=== PATIENT | male | born 1990 | race Caucasian/White ===

== ENCOUNTER 2022-07-31 02:24 | Inpatient (IN) | payer OTHER, SELFPAY ==
--- NOTE | ~2022-07-31 | XR_ITS ---
EXAMINATION: XR CHEST CLINICAL INFORMATION: Cough COMPARISON: None TECHNIQUE: Frontal view of the chest was obtained. FINDINGS: No significant abnormality is noted involving the heart, lungs, mediastinum, bony thorax or soft tissues. XR/XR chest 1V IMPRESSION: Unremarkable examination.
[2022-07-31 02:26] VITALS: BP 148/97; PULSE 90; RESP 20; TEMP 36; O2SAT 95; BMI 31.4
[2022-07-31 03:11] LABS: Basophils Absolute Auto 0.1 X10*3/uL (0.0-0.2); Basophils Percent Auto 0.3 % (0-2); Hematocrit 41.9 % (42.0-52.0); Hemoglobin 13.8 g/dl (14.0-18.0); Imm Gran Abs Auto 0.07 X10*3/uL (0.00-0.03); Imm Gran Pct Auto 0.4 % (0.0-0.4); Lymphocytes Absolute Auto 1.2 X10*3/uL (1.2-4.9); Lymphocytes Percent Auto 6.2 % (20-40); MANUAL DIFF FLAG NO; Mean Corpuscular HGB Conc 32.9 g/dl (31.0-36.0); Mean Corpuscular Hemoglobin 26.9 pg (27.0-33.0); Mean Corpuscular Volume 81.7 fL (80.0-98.0); Mean Platelet Volume 9.3 fL (9.4-12.4); Monocytes Absolute Auto 0.7 X10*3/uL (0.1-1.2); Monocytes Percent Auto 3.3 % (2-11); Neutrophils Absolute Auto 17.6 x10*3/uL (2.0-8.3); Neutrophils Percent Auto 89.8 % (45-73); Platelet Count 379 X10*3/uL (160-400); Red Blood Count 5.13 X10*6/uL (4.60-5.80); Red Cell Distribution Width 14.1 % (11.0-16.0); White Blood Count 19.6 X10*3/uL (4.8-10.8)
[2022-07-31 03:28] LABS: COVID-19 Test Negative (Negative); IDNOW Serial# 6674DD1D
[2022-07-31 03:36] LABS: Valproate < 12.5 mcg/mL (50.0-100.0)
[2022-07-31 03:37] LABS: Amphetamine Screen Urine Not Detected (Not Detect); Barbiturates, Urine Not Detected (Not Detect); Benzodiazepines Screen Urine Not Detected (Not Detect); Cannabinoid Screen Urine POSITIVE (Not Detect); Cocaine Screen Urine POSITIVE (Not Detect); Fentanyl, urine Not Detected (Not Detect); Opiate Screen Urine Not Detected (Not Detect); Phencyclidine Screen Urine Not Detected (Not Detect)
[2022-07-31 03:40] VITALS: BP 137/88; PULSE 80; RESP 18; TEMP 36.6; O2SAT 95
[2022-07-31 03:40] LABS: Alanine Aminotransferase 38 U/L (0-40); Albumin Level 4.7 g/dL (3.5-5.0); Alkaline Phosphatase 84 U/L (39-117); Anion Gap 18 (12-20); Aspartate Amino Transferase 18 U/L (5-37); Bilirubin Total 0.4 mg/dL (0.0-1.0); Blood Urea Nitrogen 21 mg/dL (9-16); Calcium 9.5 mg/dL (8.4-10.2); Carbon Dioxide 22 mmol/L (22-29); Chloride 105 mmol/L (96-108); Creatinine Clr Calc Pharmacy 112.7; Estimated Glomerular Filt Rate > 60; Ethanol < 10 mg/dL; Glucose Random 96 mg/dL (60-115); Potassium 4.4 mmol/L (3.3-5.1); Sodium 141 mmol/L (135-145); Total Protein 7.5 g/dL (6.5-8.0)
--- NOTE | 2022-07-31 03:43 | ED.PSYCH ---
HPI - Psych General Chief Complaint: Psychiatric Symptoms Stated Complaint: crisis Time Seen by Provider: 07/31/22 02:47 Source: patient Mode of arrival: ambulatory Limitations: no limitations History of Present Illness HPI Narrative: Patient homeless, history of cocaine abuse and depression used to be on Depakote and Seroquel which not taking for more than 4 weeks comes here for increased depression feels suicidal with no plan relapse on cocaine few days ago patient also been coughing for a while Related Data Home Medications Medication Instructions Recorded Confirmed divalproex 500 mg tablet,delayed 3 tab PO BEDTIME 07/31/22 07/31/22 release fluoxetine 40 mg capsule 1 cap PO QAM 07/31/22 07/31/22 quetiapine 50 mg tablet 1 tab PO TID PRN Anxiety 07/31/22 07/31/22 Allergies Allergy/AdvReac Type Severity Reaction Status Date / Time bupropion [From Wellbutrin] Allergy Unknown Verified 07/31/22 02:30 Review of Systems Review of Systems: Yes all other systems are reviewed and are negative COUNT INCLUDES THE [facility] Social History Social History Advance Directives: No Physical Exam Vital Signs: Vital Signs: Last Vital Signs Temp 97.9 F 07/31/22 03:40 Pulse 80 07/31/22 03:40 Resp 18 07/31/22 03:40 BP 137/88 07/31/22 03:40 Pulse Ox 95 07/31/22 03:40 O2 Del Method 07/31/22 03:40 BMI result Body Mass Index 31.4 Appearance: Alert. Oriented X3. No acute distress. Unkept Eyes: PERRLA, No Nystagmus ENT: Pharynx normal. Oral Mucosa moist Neck: Normal inspection. Neck supple. CVS: Normal heart rate and rhythm. Pulses normal. Respiratory: No respiratory distress. Equal air entry bilateral, no wheezing/rales/rhonchi Abdomen: Soft and nontender. Bowel sounds are present, no mass palpable, no CVA tenderness Skin: Skin warm and dry. Normal skin color. Normal skin turgor. Extremities: No lower extremity edema. No calf tenderness psych: Depression+ no SI/HI or hallucination/delusion Neuro: Oriented X 3. No motor deficit. No sensory deficit.No cerebellar signs , cranial nerves II-XII intact Medications Administered Discontinued Medications Generic Name Dose Route Start Last Admin Trade Name Liam PRN Reason Stop Dose Admin Cefuroxime Axetil 500 mg 07/31/22 04:15 07/31/22 04:29 Cefuroxime Axetil 500 Mg Tablet PO 07/31/22 04:16 500 mg ONCE ONE Administration Doxycycline Monohydrate 100 mg 07/31/22 04:15 07/31/22 04:29 Doxycycline Monohydrate 100 Mg Capsule PO 07/31/22 04:16 100 mg ONCE ONE Administration Medical Decision Making Medical Decision Making MDM Narrative: Patient with depression with SI with substance abuse cocaine will get care team involve for evaluation Lab Data MDM Lab Attestation statement: I reviewed the patient's lab results. 07/31/22 02:51 07/31/22 02:51 Labs: Lab Results 07/31/22 07/31/22 07/31/22 Range/Units 02:51 02:51 02:51 WBC 19.6 H (4.8-10.8) X10*3/uL RBC 5.13 (4.60-5.80) X10*6/uL Hgb 13.8 L (14.0-18.0) g/dl Hct 41.9 L (42.0-52.0) % MCV 81.7 (80.0-98.0) fL MCH 26.9 L (27.0-33.0) pg MCHC 32.9 (31.0-36.0) g/dl RDW 14.1 (11.0-16.0) % Plt Count 379 (160-400) X10*3/uL MPV 9.3 L (9.4-12.4) fL Immature Gran % (Auto) 0.4 (0.0-0.4) % Neut % (Auto) 89.8 H (45-73) % Lymph % (Auto) 6.2 L (20-40) % Towns % (Auto) 3.3 (2-11) % Eos % (Auto) 0.0 (0-4) % Baso % (Auto) 0.3 (0-2) % Lymph # (Auto) 1.2 (1.2-4.9) X10*3/uL Towns # (Auto) 0.7 (0.1-1.2) X10*3/uL Eos # (Auto) 0.0 (0.0-0.4) X10*3/uL Baso # (Auto) 0.1 (0.0-0.2) X10*3/uL Abs Immat Gran (auto) 0.07 H (0.00-0.03) X10*3/uL Absolute Neuts (auto) 17.6 H (2.0-8.3) x10*3/uL Absolute Nucleated RBC 0.000 (0.0-0.012) X10*3/uL Nucleated RBC % (auto) 0.0 (0.0-0.2) /100WBC Sodium 141 (135-145) mmol/L Potassium 4.4 (3.3-5.1) mmol/L Chloride 105 (96-108) mmol/L Carbon Dioxide 22 (22-29) mmol/L Anion Gap 18 (12-20) BUN 21 H (9-16) mg/dL Creatinine 0.98 (0.5-1.4) mg/dL Estim Creat Clear Calc 112.7 Estimated GFR > 60 Random Glucose 96 (60-115) mg/dL Calcium 9.5 (8.4-10.2) mg/dL Total Bilirubin 0.4 (0.0-1.0) mg/dL AST 18 (5-37) U/L ALT 38 (0-40) U/L Alkaline Phosphatase 84 (39-117) U/L Total Protein 7.5 (6.5-8.0) g/dL Albumin 4.7 (3.5-5.0) g/dL Urine Opiates Screen (Not Detect) Urine Fentanyl Screen (Not Detect) Ur Barbiturates Screen (Not Detect) Valproic Acid (50.0-100.0) mcg/mL Ur Phencyclidine Scrn (Not Detect) Ur Amphetamines Screen (Not Detect) U Benzodiazepines Scrn (Not Detect) Urine Cocaine Screen (Not Detect) U Marijuana (THC) Screen (Not Detect) Ethyl Alcohol < 10 mg/dL COVID-19 (FRIEDA) Negative (Negative) COVID-19 Clin Com See Note 07/31/22 07/31/22 Range/Units 02:51 02:54 WBC (4.8-10.8) X10*3/uL RBC (4.60-5.80) X10*6/uL Hgb (14.0-18.0) g/dl Hct (42.0-52.0) % MCV (80.0-98.0) fL MCH (27.0-33.0) pg MCHC (31.0-36.0) g/dl RDW (11.0-16.0) % Plt Count (160-400) X10*3/uL MPV (9.4-12.4) fL Immature Gran % (Auto) (0.0-0.4) % Neut % (Auto) (45-73) % Lymph % (Auto) (20-40) % Towns % (Auto) (2-11) % Eos % (Auto) (0-4) % Baso % (Auto) (0-2) % Lymph # (Auto) (1.2-4.9) X10*3/uL Towns # (Auto) (0.1-1.2) X10*3/uL Eos # (Auto) (0.0-0.4) X10*3/uL Baso # (Auto) (0.0-0.2) X10*3/uL Abs Immat Gran (auto) (0.00-0.03) X10*3/uL Absolute Neuts (auto) (2.0-8.3) x10*3/uL Absolute Nucleated RBC (0.0-0.012) X10*3/uL Nucleated RBC % (auto) (0.0-0.2) /100WBC Sodium (135-145) mmol/L Potassium (3.3-5.1) mmol/L Chloride (96-108) mmol/L Carbon Dioxide (22-29) mmol/L Anion Gap (12-20) BUN (9-16) mg/dL Creatinine (0.5-1.4) mg/dL Estim Creat Clear Calc Estimated GFR Random Glucose (60-115) mg/dL Calcium (8.4-10.2) mg/dL Total Bilirubin (0.0-1.0) mg/dL AST (5-37) U/L ALT (0-40) U/L Alkaline Phosphatase (39-117) U/L Total Protein (6.5-8.0) g/dL Albumin (3.5-5.0) g/dL Urine Opiates Screen Not Detected (Not Detect) Urine Fentanyl Screen Not Detected (Not Detect) Ur Barbiturates Screen Not Detected (Not Detect) Valproic Acid < 12.5 L (50.0-100.0) mcg/mL Ur Phencyclidine Scrn Not Detected (Not Detect) Ur Amphetamines Screen Not Detected (Not Detect) U Benzodiazepines Scrn Not Detected (Not Detect) Urine Cocaine Screen POSITIVE H (Not Detect) U Marijuana (THC) Screen POSITIVE H (Not Detect) Ethyl Alcohol mg/dL COVID-19 (FRIEDA) (Negative) COVID-19 Clin Com Discharge Plan Discharge Clinical Impression: Depression, Suicidal ideation, Cocaine abuse Prescriptions: No Action fluoxetine 40 mg capsule 1 cap PO QAM divalproex 500 mg tablet,delayed release (DR/EC) 3 tab PO BEDTIME quetiapine 50 mg tablet 1 tab PO TID PRN (Reason: Anxiety) Interventions: [place]-Suicide Risk Severity Scale Last Done: 07/31/22 06:15
[2022-07-31] MEDS: Doxycycline Monohydrate 100 MG CAPSULE PO ×2 (04:29→21:23)
--- NOTE | 2022-07-31 06:24 | PC.NURSE ---
Patient slept decently, intermittent coughing, chest X-ray negative, one time order of Doxy 100 mg and Ceftin 500 mg ordered/administered at 0429 for possible bronchitis or IV use related infection, partial med rec completed/pending provider's approval, VSS, patient is awaiting care team evaluation in the morning, behavior non concerning, will continue to monitor.
[2022-07-31 08:08] VITALS: BP 139/95; PULSE 60; RESP 20; TEMP 36.6; O2SAT 98
--- NOTE | 2022-07-31 11:41 | ECG_ITS ---
Test Reason : +MAJANO for admission Blood Pressure : / mmHG Vent. Rate : 059 BPM Atrial Rate : 059 BPM P-R Int : 150 ms QRS Dur : 088 ms QT Int : 426 ms P-R-T Axes : 055 011 025 degrees QTc Int : 421 ms Sinus bradycardia Otherwise normal ECG No previous ECGs available Referred By: Guilherme Branham Electronically Signed By:LISANDRA BOOTH MD
[2022-07-31 18:00] VITALS: BP 139/85; PULSE 60; TEMP 36.4; O2SAT 97
--- NOTE | 2022-07-31 18:40 | PC.ADMIT ---
pt is a 32 year old male who presented to [facility] with SI. pt rosalia screen is positive for THC and cocaine. pt has PMH of SI attempts and substance abuse. pt has a possible infection and recieving doxycycline. during admission, pt was pleasant but appeared to be anxious. start treatment plan and continue safety.
[2022-07-31] MEDS: Divalproex Sodium 500 MG TABLET.DR 1500 MG PO (21:22)
[2022-07-31] MEDS: traZODone HCL 50 MG TABLET PO (21:29)
[2022-08-01 06:00] VITALS: BP 124/76; PULSE 53; RESP 16; TEMP 36.1; O2SAT 96
[2022-08-01 07:38] LABS: MANUAL DIFF FLAG NO
[2022-08-01 07:45] LABS: Basophils Absolute Auto 0.1 X10*3/uL (0.0-0.2); Basophils Percent Auto 0.5 % (0-2); Eosinophils Absolute Auto 0.3 X10*3/uL (0.0-0.4); Eosinophils Percent Auto 3.5 % (0-4); Hematocrit 44.6 % (42.0-52.0); Hemoglobin 14.8 g/dl (14.0-18.0); Imm Gran Abs Auto 0.04 X10*3/uL (0.00-0.03); Imm Gran Pct Auto 0.4 % (0.0-0.4); Lymphocytes Absolute Auto 3.6 X10*3/uL (1.2-4.9); Mean Corpuscular HGB Conc 33.2 g/dl (31.0-36.0); Mean Corpuscular Hemoglobin 27.7 pg (27.0-33.0); Mean Corpuscular Volume 83.4 fL (80.0-98.0); Mean Platelet Volume 9.5 fL (9.4-12.4); Monocytes Absolute Auto 0.6 X10*3/uL (0.1-1.2); Monocytes Percent Auto 6.1 % (2-11); Neutrophils Absolute Auto 4.9 x10*3/uL (2.0-8.3); Neutrophils Percent Auto 51.5 % (45-73); Platelet Count 350 X10*3/uL (160-400); Red Blood Count 5.35 X10*6/uL (4.60-5.80); Red Cell Distribution Width 14.1 % (11.0-16.0); White Blood Count 9.5 X10*3/uL (4.8-10.8)
[2022-08-01 08:02] LABS: Estimated Average Glucose 108 mg/dL; Hemoglobin A1C 138.4052 umol/L; Hemoglobin A1c % 5.4 %
[2022-08-01 08:06] LABS: Cholesterol 197 mg/dL; HDL Cholesterol 49 mg/dL; LDL Cholesterol Calculated 132 mg/dl; Triglycerides 83 mg/dL
[2022-08-01] MEDS: Doxycycline Monohydrate 100 MG CAPSULE PO ×2 (08:53→22:21)
[2022-08-01] MEDS: FLUoxetine HCl 20 MG CAPSULE 40 MG PO (08:53)
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
[2022-08-01] MEDS: Divalproex Sodium 500 MG TABLET.DR 1500 MG PO (22:18)
[2022-08-01] MEDS: QUEtiapine Fumarate 50 MG TABLET 150 MG PO (22:18)
[2022-08-01] MEDS: Benztropine Mesylate 1 MG TABLET PO (22:21)
[2022-08-02 08:00] VITALS: BP 131/85; PULSE 56; TEMP 36.9; O2SAT 100
[2022-08-02] MEDS: Doxycycline Monohydrate 100 MG CAPSULE PO ×2 (08:42→20:30)
[2022-08-02] MEDS: FLUoxetine HCl 20 MG CAPSULE 40 MG PO (08:42)
[2022-08-02] MEDS: Benztropine Mesylate 1 MG TABLET PO ×2 (08:42→20:30)
--- NOTE | 2022-08-02 09:30 | P.PNPSI_ITS ---
Subjective Subjective Date of Service: 08/02/22 Reason For Visit: depression/si Interim History: Met with patient; discussed and teams; reviewed previous progress notes Patient said that he is feeling a little better and SI though still intermittently present is much less. Feels that medications are starting to work. Patient stays mostly to himself and in bed Mental Status Exam Mental Status Exam Narrative: Pt is alert and oriented; behavior is marginally cooperative but not impolite; patient is not in distress; dressed in casual attire with unkempt hair, marginal hygiene; mood is described as little better and affect congruent; minimal eye contact; Speech is normal rate, volume and prosody and not pressured; psychomotor retardation present; thought process is goal directed; Thought content is on tx, depressed feelings; otherwise pertinent to relevant topics and without any delusional content, paranoid ideations or grandiosity; intermittent passive SI/no HI. There is no evidence of perceptual disturbance. Patients insight and judgment impaired but improving Diagnostics Vital Signs (24Hr): BMI result Body Mass Index 31.4 Labs 08/01/22 07:16 07/31/22 02:51 Labs: Laboratory Results - last 48 hr 08/01/22 08/01/22 08/01/22 07:16 07:16 07:16 WBC 9.5 RBC 5.35 Hgb 14.8 Hct 44.6 MCV 83.4 MCH 27.7 MCHC 33.2 RDW 14.1 Plt Count 350 MPV 9.5 Immature Gran % (Auto) 0.4 Neut % (Auto) 51.5 Lymph % (Auto) 38.0 [place] % (Auto) 6.1 Eos % (Auto) 3.5 Baso % (Auto) 0.5 Lymph # (Auto) 3.6 [place] # (Auto) 0.6 Eos # (Auto) 0.3 Baso # (Auto) 0.1 Abs Immat Gran (auto) 0.04 H Absolute Neuts (auto) 4.9 Absolute Nucleated RBC 0.000 Nucleated RBC % (auto) 0.0 Estimat Average Glucose 108 Hemoglobin A1c % 5.4 Triglycerides 83 Cholesterol 197 LDL Cholesterol, Calc 132 HDL Cholesterol 49 Imaging Radiology Impressions: ITS Impressions Chest X-Ray 07/31/22 04:20 IMPRESSION: Unremarkable examination. Medications Medications Current Medications Acetaminophen (Acetaminophen 325 Mg Tablet) 650 mg PO Q6H PRN PRN Reason: Headache/Pain Mild Scale (1-3) Al Hydroxide/Mg Hydroxide (Magnesium Hydrox/Alum Hydrox 30 Ml Oral.Susp) 30 ml PO Q6H PRN PRN Reason: Heartburn/Nausea Albuterol Sulfate (Albuterol Sulfate 90 Mcg 8 Gm Inhaler) 2 puff INHALE RQ4H PRN PRN Reason: Wheezing Benztropine Mesylate (Benztropine Mesylate 1 Mg Tablet) 1 mg PO BID [facility] Last Admin: 08/02/22 08:42 Dose: 1 mg Divalproex Sodium (Divalproex Sodium 500 Mg Tablet.Dr) 1,500 mg PO BEDTIME [facility] Last Admin: 08/01/22 22:18 Dose: 1,500 mg Doxycycline Monohydrate (Doxycycline Monohydrate 100 Mg Capsule) 100 mg PO BID [facility] Stop: 08/08/22 23:00 Last Admin: 08/02/22 08:42 Dose: 100 mg Fluoxetine HCl (Fluoxetine Hcl 20 Mg Capsule) 40 mg PO DAILY [facility] Last Admin: 08/02/22 08:42 Dose: 40 mg Hydroxyzine HCl (Hydroxyzine Hcl 25 Mg Tablet) 25 mg PO Q6H PRN PRN Reason: Anxiety Magnesium Hydroxide (Milk Of Magnesia 30 Ml Oral.Susp) 30 ml PO DAILY PRN PRN Reason: Constipation Nicotine (Nicotine 21 Mg Patch.Td24) 21 mg TRANSDERMA DAILY PRN PRN Reason: smoking cessation Nicotine Polacrilex (Nicotine Polacrilex 2 Mg Gum) 4 mg BUCCAL Q2H PRN PRN Reason: Nicotine Cravings Olanzapine (Olanzapine 5 Mg Tablet) 5 mg PO TID PRN PRN Reason: agitation Quetiapine Fumarate (Quetiapine Fumarate 50 Mg Tablet) 50 mg PO TID PRN PRN Reason: Anxiety Quetiapine Fumarate (Quetiapine Fumarate 50 Mg Tablet) 150 mg PO BEDTIME [facility] Last Admin: 08/01/22 22:18 Dose: 150 mg Trazodone HCl (Trazodone Hcl 50 Mg Tablet) 50 mg PO BEDTIME MRX1 PRN PRN Reason: Insomnia Last Admin: 07/31/22 21:29 Dose: 50 mg Allergies Allergies Allergy/AdvReac Type Severity Reaction Status Date / Time bupropion [From Wellbutrin] Allergy Unknown Verified 07/31/22 02:30 Assessment & Plan Assessment & Plan (1) Depression: Status: Acute Code(s): F32.A - Depression, unspecified (2) Suicidal ideation: Status: Acute Code(s): R45.851 - Suicidal ideations (3) Cocaine abuse: Status: Acute Code(s): F14.10 - Cocaine abuse, uncomplicated Plan 32 yo male presenting with increase in depressive sx with SI and cocaine relapse. 08/02 continue current regimen Will look to see regarding Depakote level labs Plan: Collateral contact Seroquel 150 mg HS Milieu involvement Aftercare planning, ?CSS Patient educated on: diagnosis and medication risk/benefits Informed Consent: understands Reason for contiued inpatient stay Substantial Risk for: rapid decompensation Time Spent With Patient Time: Total time managing care of this patient today ____ minutes.
[2022-08-02 16:35] VITALS: BP 130/77; PULSE 58; TEMP 35.8; O2SAT 98
[2022-08-02] MEDS: QUEtiapine Fumarate 50 MG TABLET 150 MG PO (20:30)
[2022-08-02] MEDS: Divalproex Sodium 500 MG TABLET.DR 1500 MG PO (20:30)
[2022-08-02] MEDS: Melatonin 3 MG TABLET PO (20:55)
--- NOTE | 2022-08-02 20:58 | PC.NURSE ---
Patient requested Melatonin for sleep. Dr. Sierra aware, ordered Melatonin 3 mg po HS scheduled and 3 mg of Melatonin as a prn for sleep at HS. Patient aware and received 1st scheduled dose tonight.
[2022-08-03 06:00] VITALS: BP 123/84; PULSE 96; RESP 16; TEMP 35.6; O2SAT 100
[2022-08-03] MEDS: FLUoxetine HCl 20 MG CAPSULE 40 MG PO (08:32)
[2022-08-03] MEDS: Benztropine Mesylate 1 MG TABLET PO ×2 (08:32→20:59)
[2022-08-03] MEDS: Doxycycline Monohydrate 100 MG CAPSULE PO ×2 (08:32→20:59)
[2022-08-03] MEDS: hydrOXYzine HCL 25 MG TABLET PO (12:32)
--- NOTE | 2022-08-03 13:39 | P.PNPSI_ITS ---
Subjective Subjective Date of Service: 08/03/22 Reason For Visit: depression/si Interim History: met with pt; discussed with teams Patient says he has all right and that he thinks medications are working. He does not want any change in medication doses at this time. He says he is still having some negative thoughts that breakthrough, remembering some past bad experiences but overall feels he is improved. Slept last night. No SI or HI or AVH. Mental Status Exam Mental Status Exam Narrative: Pt is alert and oriented; behavior is marginally cooperative but not impolite; patient is not in distress; dressed in casual attire with unkempt hair, marginal hygiene; mood is described as little better and affect congruent; minimal eye contact; Speech is normal rate, volume and prosody and not pressured; psychomotor retardation present; thought process is goal directed; Thought content is on tx, depressed feelings; otherwise pertinent to relevant topics and without any delusional content, paranoid ideations or grandiosity; no SI/no HI. There is no evidence of perceptual disturbance. Patients insight and judgment impaired but improving Diagnostics Vital Signs (24Hr): Vital Signs - 24 hr 08/02/22 16:35 08/03/22 06:00 Temperature 96.4 F L 96.0 F L Pulse Rate 58 96 Respiratory Rate 16 Blood Pressure 130/77 123/84 Pulse Oximetry 98 100 Oxygen Delivery Method Room Air Room Air BMI result Body Mass Index 31.4 Labs 08/01/22 07:16 07/31/22 02:51 Imaging Radiology Impressions: ITS Impressions Chest X-Ray 07/31/22 04:20 IMPRESSION: Unremarkable examination. Medications Medications Current Medications Acetaminophen (Acetaminophen 325 Mg Tablet) 650 mg PO Q6H PRN PRN Reason: Headache/Pain Mild Scale (1-3) Al Hydroxide/Mg Hydroxide (Magnesium Hydrox/Alum Hydrox 30 Ml Oral.Susp) 30 ml PO Q6H PRN PRN Reason: Heartburn/Nausea Albuterol Sulfate (Albuterol Sulfate 90 Mcg 8 Gm Inhaler) 2 puff INHALE RQ4H PRN PRN Reason: Wheezing Benztropine Mesylate (Benztropine Mesylate 1 Mg Tablet) 1 mg PO BID [facility] Last Admin: 08/03/22 08:32 Dose: 1 mg Divalproex Sodium (Divalproex Sodium 500 Mg Tablet.) 1,500 mg PO BEDTIME [facility] Last Admin: 08/02/22 20:30 Dose: 1,500 mg Doxycycline Monohydrate (Doxycycline Monohydrate 100 Mg Capsule) 100 mg PO BID [facility] Stop: 08/08/22 23:00 Last Admin: 08/03/22 08:32 Dose: 100 mg Fluoxetine HCl (Fluoxetine Hcl 20 Mg Capsule) 40 mg PO DAILY [facility] Last Admin: 08/03/22 08:32 Dose: 40 mg Hydroxyzine HCl (Hydroxyzine Hcl 25 Mg Tablet) 25 mg PO Q6H PRN PRN Reason: Anxiety Last Admin: 08/03/22 12:32 Dose: 25 mg Magnesium Hydroxide (Milk Of Magnesia 30 Ml Oral.Susp) 30 ml PO DAILY PRN PRN Reason: Constipation Melatonin (Melatonin 3 Mg Tablet) 3 mg PO BEDTIME [facility] Last Admin: 08/02/22 20:55 Dose: 3 mg Melatonin (Melatonin 3 Mg Tablet) 3 mg PO BEDTIME PRN PRN Reason: continued insomnia Nicotine (Nicotine 21 Mg Patch.Td24) 21 mg TRANSDERMA DAILY PRN PRN Reason: smoking cessation Nicotine Polacrilex (Nicotine Polacrilex 2 Mg Gum) 4 mg BUCCAL Q2H PRN PRN Reason: Nicotine Cravings Olanzapine (Olanzapine 5 Mg Tablet) 5 mg PO TID PRN PRN Reason: agitation Quetiapine Fumarate (Quetiapine Fumarate 50 Mg Tablet) 50 mg PO TID PRN PRN Reason: Anxiety Quetiapine Fumarate (Quetiapine Fumarate 50 Mg Tablet) 150 mg PO BEDTIME [facility] Last Admin: 08/02/22 20:30 Dose: 150 mg Trazodone HCl (Trazodone Hcl 50 Mg Tablet) 50 mg PO BEDTIME MRX1 PRN PRN Reason: Insomnia Last Admin: 07/31/22 21:29 Dose: 50 mg Allergies Allergies Allergy/AdvReac Type Severity Reaction Status Date / Time bupropion [From Wellbutrin] Allergy Unknown Verified 07/31/22 02:30 Assessment & Plan Assessment & Plan (1) Depression: Status: Acute Code(s): F32.A - Depression, unspecified (2) Suicidal ideation: Status: Acute Code(s): R45.851 - Suicidal ideations (3) Cocaine abuse: Status: Acute Code(s): F14.10 - Cocaine abuse, uncomplicated Plan 32 yo male presenting with increase in depressive sx with SI and cocaine relapse. 08/02 continue current regimen Will look to see regarding Depakote level labs 08/03 continue current regimen -ordered labs Plan: Collateral contact Seroquel 150 mg HS Milieu involvement Aftercare planning, ?CSS Patient educated on: diagnosis and medication risk/benefits Informed Consent: understands Reason for contiued inpatient stay Substantial Risk for: rapid decompensation Time Spent With Patient Time: Total time managing care of this patient today ____ minutes.
[2022-08-03 18:00] VITALS: BP 119/70; PULSE 68; TEMP 36.4; O2SAT 98
[2022-08-03] MEDS: Divalproex Sodium 500 MG TABLET.DR 1500 MG PO (20:59)
[2022-08-03] MEDS: Melatonin 3 MG TABLET PO (20:59)
[2022-08-03] MEDS: QUEtiapine Fumarate 50 MG TABLET 150 MG PO (20:59)
[2022-08-04 06:00] VITALS: BP 136/78; PULSE 63; RESP 18; TEMP 36; O2SAT 99
[2022-08-04 07:35] LABS: Ammonia 30 umol/L (13-55)
[2022-08-04 07:43] LABS: Alanine Aminotransferase 27 U/L (0-40); Albumin Level 4.3 g/dL (3.5-5.0); Alkaline Phosphatase 77 U/L (39-117); Aspartate Amino Transferase 12 U/L (5-37); Bilirubin Direct < 0.2 mg/dL (0.0-0.5); Bilirubin Total 0.4 mg/dL (0.0-1.0)
[2022-08-04 07:44] LABS: Valproate 116.7 mcg/mL (50.0-100.0)
[2022-08-04] MEDS: Benztropine Mesylate 1 MG TABLET PO ×2 (08:57→22:19)
[2022-08-04] MEDS: FLUoxetine HCl 20 MG CAPSULE 40 MG PO (08:57)
[2022-08-04] MEDS: Doxycycline Monohydrate 100 MG CAPSULE PO ×2 (08:57→22:19)
[2022-08-04] MEDS: OLANZapine 5 MG TABLET PO (13:37)
[2022-08-04] MEDS: hydrOXYzine HCL 25 MG TABLET PO (13:37)
[2022-08-04] MEDS: QUEtiapine Fumarate 50 MG TABLET PO (13:37)
--- NOTE | 2022-08-04 16:19 | P.PNPSI_ITS ---
Subjective Subjective Date of Service: 08/04/22 Reason For Visit: depression/si Subjective Notes: Conditional Voluntary Healthcare Proxy: No Guardianship: No Medical Problems Affecting Mental Status: No Interim History: Discussed loss of [employer] paperwork and his concerns. Has a business case analyst with [employer] and will work with this pulmonary care nurse around recreating application. Discussed with pt that we can complete the medical portion of this application when he is ready to proceed. Discussed discharge to a detention, review of meds. Valproate level 116.7 today, will decrease dosage and repeat lab values. Medication Compliance: Yes Side effects from medications: No Attending Groups: Intermittent Review of Systems Acute medical concerns: No Medical Review of Systems: unchanged Mental Status Exam Mental Status Exam Patient Appearance: Appropriate Patient Orientation: Person, Place, Time and Situation Level of Consciousness: Alert Patient Behavior: Appropriate, Talkative, Cooperative and Good Eye Contact Mood Description: Apprehensive Affect Description: Apprehensive Patient Cognition Impaired: No Ability to Follow Directions: Good Speech Pattern: Spontaneous Speech Memory Description: Intact Hallucinations: None Delusions: Not Present Thought Process: Distracted Thought Content: positive for Circumstantial and positive for Perseveration Depressive Symptoms: Increased Anxiety and Thoughts of /Suicide (denies) Abnormal Motor Activity Signs and Symptoms: Restlessness Diagnostics Vital Signs (24Hr): Vital Signs - 24 hr 08/03/22 18:00 08/04/22 06:00 Temperature 97.6 F 96.8 F Pulse Rate 68 63 Respiratory Rate 18 Blood Pressure 119/70 136/78 Pulse Oximetry 98 99 Oxygen Delivery Method Room Air Room Air BMI result Body Mass Index 31.4 Labs 08/01/22 07:16 07/31/22 02:51 Labs: Laboratory Results - last 48 hr 08/04/22 08/04/22 08/04/22 07:19 07:19 07:19 Total Bilirubin 0.4 Direct Bilirubin < 0.2 AST 12 ALT 27 Alkaline Phosphatase 77 Ammonia 30 Total Protein 7.0 Albumin 4.3 Valproic Acid 116.7 H* Imaging Radiology Impressions: ITS Impressions Chest X-Ray 07/31/22 04:20 IMPRESSION: Unremarkable examination. Medications Medications Current Medications Acetaminophen (Acetaminophen 325 Mg Tablet) 650 mg PO Q6H PRN PRN Reason: Headache/Pain Mild Scale (1-3) Al Hydroxide/Mg Hydroxide (Magnesium Hydrox/Alum Hydrox 30 Ml Oral.Susp) 30 ml PO Q6H PRN PRN Reason: Heartburn/Nausea Albuterol Sulfate (Albuterol Sulfate 90 Mcg 8 Gm Inhaler) 2 puff INHALE RQ4H PRN PRN Reason: Wheezing Benztropine Mesylate (Benztropine Mesylate 1 Mg Tablet) 1 mg PO BID [facility] Last Admin: 08/04/22 08:57 Dose: 1 mg Divalproex Sodium (Divalproex Sodium 500 Mg Tablet.Dr) 1,000 mg PO BEDTIME [facility] Doxycycline Monohydrate (Doxycycline Monohydrate 100 Mg Capsule) 100 mg PO BID [facility] Stop: 08/08/22 23:00 Last Admin: 08/04/22 08:57 Dose: 100 mg Fluoxetine HCl (Fluoxetine Hcl 20 Mg Capsule) 40 mg PO DAILY [facility] Last Admin: 08/04/22 08:57 Dose: 40 mg Hydroxyzine HCl (Hydroxyzine Hcl 25 Mg Tablet) 25 mg PO Q6H PRN PRN Reason: Anxiety Last Admin: 08/04/22 13:37 Dose: 25 mg Magnesium Hydroxide (Milk Of Magnesia 30 Ml Oral.Susp) 30 ml PO DAILY PRN PRN Reason: Constipation Melatonin (Melatonin 3 Mg Tablet) 3 mg PO BEDTIME [facility] Last Admin: 08/03/22 20:59 Dose: 3 mg Melatonin (Melatonin 3 Mg Tablet) 3 mg PO BEDTIME PRN PRN Reason: continued insomnia Nicotine (Nicotine 21 Mg Patch.Td24) 21 mg TRANSDERMA DAILY PRN PRN Reason: smoking cessation Nicotine Polacrilex (Nicotine Polacrilex 2 Mg Gum) 4 mg BUCCAL Q2H PRN PRN Reason: Nicotine Cravings Olanzapine (Olanzapine 5 Mg Tablet) 5 mg PO TID PRN PRN Reason: agitation Last Admin: 08/04/22 13:37 Dose: 5 mg Quetiapine Fumarate (Quetiapine Fumarate 50 Mg Tablet) 50 mg PO TID PRN PRN Reason: Anxiety Last Admin: 08/04/22 13:37 Dose: 50 mg Quetiapine Fumarate (Quetiapine Fumarate 50 Mg Tablet) 150 mg PO BEDTIME [facility] Last Admin: 08/03/22 20:59 Dose: 150 mg Trazodone HCl (Trazodone Hcl 50 Mg Tablet) 50 mg PO BEDTIME MRX1 PRN PRN Reason: Insomnia Last Admin: 07/31/22 21:29 Dose: 50 mg Allergies Allergies Allergy/AdvReac Type Severity Reaction Status Date / Time bupropion [From Wellbutrin] Allergy Unknown Verified 07/31/22 02:30 Assessment & Plan Assessment & Plan (1) Depression: Status: Acute Code(s): F32.A - Depression, unspecified (2) Suicidal ideation: Status: Acute Code(s): R45.851 - Suicidal ideations (3) Cocaine abuse: Status: Acute Code(s): F14.10 - Cocaine abuse, uncomplicated Plan 32 yo male presenting with increase in depressive sx with SI and cocaine relapse. 08/02 continue current regimen Will look to see regarding Depakote level labs 08/03 continue current regimen -ordered labs 08/04/22: Decrease Depakote to 1000 mg HS Pt looking to discharge this week, possibly to a detention. Plan: Collateral contact Seroquel 150 mg HS Milieu involvement Aftercare planning, ?CSS Patient educated on: medication risk/benefits and therapeutic strategies Informed Consent: understands Reason for contiued inpatient stay Substantial Risk for: rapid decompensation Time Spent With Patient Time: Total time managing care of this patient today 25 minutes.
[2022-08-04 18:00] VITALS: BP 137/72; PULSE 64; TEMP 35.9; O2SAT 99
[2022-08-04] MEDS: Magnesium Hydrox/Alum Hydrox 30 ML ORAL.SUSP PO (19:20)
[2022-08-04] MEDS: Divalproex Sodium 500 MG TABLET.DR 1000 MG PO (22:18)
[2022-08-04] MEDS: Melatonin 3 MG TABLET PO (22:19)
[2022-08-04] MEDS: QUEtiapine Fumarate 50 MG TABLET 150 MG PO (22:19)
[2022-08-05 08:30] VITALS: BP 138/83; PULSE 61; RESP 16; TEMP 36; O2SAT 100
[2022-08-05] MEDS: Doxycycline Monohydrate 100 MG CAPSULE PO ×2 (08:58→20:53)
[2022-08-05] MEDS: FLUoxetine HCl 20 MG CAPSULE 40 MG PO (08:58)
[2022-08-05] MEDS: Benztropine Mesylate 1 MG TABLET PO ×2 (08:58→20:53)
[2022-08-05 10:09] LABS: Folate 8.5 ng/mL (> or = 4.0); Thyroid Stimulating Hormone 1.39 uIU/mL (0.32-4.0); Vitamin B12 460 pg/mL (200-900)
--- NOTE | 2022-08-05 16:37 | HO.PSYCHPN ---
Subjective Subjective Date of Service: 08/05/22 Reason For Visit: depression/si Subjective Notes: Conditional Voluntary Healthcare Proxy: No Guardianship: No Medical Problems Affecting Mental Status: No Interim History: Pt has made arrangements to discharge to mother's home. Team is working on out patient appointments. Pt reports regime is tolerated and effective Plan is for discharge on 08/07/22. DTA appt will be on 08/08-pt is aware we can assist with medical information on this application as needed. Medication Compliance: Yes Side effects from medications: No Attending Groups: Intermittent Review of Systems Acute medical concerns: No Medical Review of Systems: unchanged Mental Status Exam Mental Status Exam Patient Appearance: Appropriate Patient Orientation: Person, Place, Time and Situation Level of Consciousness: Alert Patient Behavior: Appropriate, Talkative, Cooperative and Good Eye Contact Mood Description: Apprehensive Affect Description: Apprehensive Patient Cognition Impaired: No Ability to Follow Directions: Good Speech Pattern: Spontaneous Speech Memory Description: Intact Hallucinations: None Delusions: Not Present Thought Process: Distracted Thought Content: positive for Circumstantial and positive for Perseveration Depressive Symptoms: Increased Anxiety and Thoughts of /Suicide (denies) Abnormal Motor Activity Signs and Symptoms: Restlessness Diagnostics Vital Signs (24Hr): Vital Signs - 24 hr 08/04/22 18:00 08/05/22 08:30 Temperature 96.7 F L 96.8 F Pulse Rate 64 61 Respiratory Rate 16 Blood Pressure 137/72 138/83 Pulse Oximetry 99 100 Oxygen Delivery Method Room Air Room Air BMI result Body Mass Index 31.4 Labs 08/01/22 07:16 07/31/22 02:51 Labs: Laboratory Results - last 48 hr 08/04/22 08/04/22 08/04/22 07:19 07:19 07:19 Total Bilirubin 0.4 Direct Bilirubin < 0.2 AST 12 ALT 27 Alkaline Phosphatase 77 Ammonia 30 Total Protein 7.0 Albumin 4.3 Vitamin B12 Folate TSH Valproic Acid 116.7 H* 08/05/22 08:25 Total Bilirubin Direct Bilirubin AST ALT Alkaline Phosphatase Ammonia Total Protein Albumin Vitamin B12 460 Folate 8.5 TSH 1.39 Valproic Acid Imaging Radiology Impressions: ITS Impressions Chest X-Ray 07/31/22 04:20 IMPRESSION: Unremarkable examination. Medications Medications Current Medications Acetaminophen (Acetaminophen 325 Mg Tablet) 650 mg PO Q6H PRN PRN Reason: Headache/Pain Mild Scale (1-3) Al Hydroxide/Mg Hydroxide (Magnesium Hydrox/Alum Hydrox 30 Ml Oral.Susp) 30 ml PO Q6H PRN PRN Reason: Heartburn/Nausea Last Admin: 08/04/22 19:20 Dose: 30 ml Albuterol Sulfate (Albuterol Sulfate 90 Mcg 8 Gm Inhaler) 2 puff INHALE RQ4H PRN PRN Reason: Wheezing Benztropine Mesylate (Benztropine Mesylate 1 Mg Tablet) 1 mg PO BID [facility] Last Admin: 08/05/22 08:58 Dose: 1 mg Divalproex Sodium (Divalproex Sodium 500 Mg Tablet.Dr) 1,000 mg PO BEDTIME [facility] Last Admin: 08/04/22 22:18 Dose: 1,000 mg Doxycycline Monohydrate (Doxycycline Monohydrate 100 Mg Capsule) 100 mg PO BID [facility] Stop: 08/08/22 23:00 Last Admin: 08/05/22 08:58 Dose: 100 mg Fluoxetine HCl (Fluoxetine Hcl 20 Mg Capsule) 40 mg PO DAILY [facility] Last Admin: 08/05/22 08:58 Dose: 40 mg Hydroxyzine HCl (Hydroxyzine Hcl 25 Mg Tablet) 25 mg PO Q6H PRN PRN Reason: Anxiety Last Admin: 08/04/22 13:37 Dose: 25 mg Magnesium Hydroxide (Milk Of Magnesia 30 Ml Oral.Susp) 30 ml PO DAILY PRN PRN Reason: Constipation Melatonin (Melatonin 3 Mg Tablet) 3 mg PO BEDTIME [facility] Last Admin: 08/04/22 22:19 Dose: 3 mg Melatonin (Melatonin 3 Mg Tablet) 3 mg PO BEDTIME PRN PRN Reason: continued insomnia Nicotine (Nicotine 21 Mg Patch.Td24) 21 mg TRANSDERMA DAILY PRN PRN Reason: smoking cessation Nicotine Polacrilex (Nicotine Polacrilex 2 Mg Gum) 4 mg BUCCAL Q2H PRN PRN Reason: Nicotine Cravings Olanzapine (Olanzapine 5 Mg Tablet) 5 mg PO TID PRN PRN Reason: agitation Last Admin: 08/04/22 13:37 Dose: 5 mg Quetiapine Fumarate (Quetiapine Fumarate 50 Mg Tablet) 50 mg PO TID PRN PRN Reason: Anxiety Last Admin: 08/04/22 13:37 Dose: 50 mg Quetiapine Fumarate (Quetiapine Fumarate 50 Mg Tablet) 150 mg PO BEDTIME [facility] Last Admin: 08/04/22 22:19 Dose: 150 mg Trazodone HCl (Trazodone Hcl 50 Mg Tablet) 50 mg PO BEDTIME MRX1 PRN PRN Reason: Insomnia Last Admin: 07/31/22 21:29 Dose: 50 mg Allergies Allergies Allergy/AdvReac Type Severity Reaction Status Date / Time bupropion [From Wellbutrin] Allergy Unknown Verified 07/31/22 02:30 Assessment & Plan Assessment & Plan (1) Depression: Status: Acute Code(s): F32.A - Depression, unspecified (2) Suicidal ideation: Status: Acute Code(s): R45.851 - Suicidal ideations (3) Cocaine abuse: Status: Acute Code(s): F14.10 - Cocaine abuse, uncomplicated Plan 32 yo male presenting with increase in depressive sx with SI and cocaine relapse. 08/02 continue current regimen Will look to see regarding Depakote level labs 08/03 continue current regimen -ordered labs 08/05/22- Discharge 08/07. Plans to go to mother's home. Plan: Collateral contact Seroquel 150 mg HS Milieu involvement Aftercare planning, ?CSS Patient educated on: therapeutic strategies Informed Consent: understands Reason for contiued inpatient stay Substantial Risk for: inability to function and rapid decompensation Time Spent With Patient Time: Total time managing care of this patient today 15 minutes.
[2022-08-05 18:00] VITALS: BP 126/63; PULSE 79; TEMP 36.2; O2SAT 98
[2022-08-05] MEDS: Magnesium Hydrox/Alum Hydrox 30 ML ORAL.SUSP PO (19:34)
[2022-08-05] MEDS: Divalproex Sodium 500 MG TABLET.DR 1000 MG PO (20:53)
[2022-08-05] MEDS: Melatonin 3 MG TABLET PO (20:53)
[2022-08-05] MEDS: QUEtiapine Fumarate 50 MG TABLET 150 MG PO (20:54)
[2022-08-05] MEDS: traZODone HCL 50 MG TABLET PO (20:55)
--- NOTE | 2022-08-05 20:58 | PC.NURSE ---
Pt prefers [facility] in [place].
[2022-08-06] MEDS: Doxycycline Monohydrate 100 MG CAPSULE PO ×2 (08:27→20:27)
[2022-08-06] MEDS: FLUoxetine HCl 20 MG CAPSULE 40 MG PO (08:27)
[2022-08-06] MEDS: Benztropine Mesylate 1 MG TABLET PO ×2 (08:27→20:25)
[2022-08-06 09:17] VITALS: BP 138/100; PULSE 17; RESP 16; TEMP 36.6; O2SAT 99
[2022-08-06] MEDS: Magnesium Hydrox/Alum Hydrox 30 ML ORAL.SUSP PO (09:21)
--- NOTE | 2022-08-06 17:18 | P.PNPSI_ITS ---
Subjective Subjective Date of Service: 08/06/22 Reason For Visit: depression/si Subjective Notes: Conditional Voluntary Healthcare Proxy: No Guardianship: No Medical Problems Affecting Mental Status: No Interim History: Preparing to discharge. Denies interest in further care, i.e. IOP/PHP/CSS/TSS Will attend NA and OP care Feeling prepared to leave. Medication Compliance: Yes Side effects from medications: No Attending Groups: Intermittent Review of Systems Acute medical concerns: No Medical Review of Systems: unchanged Mental Status Exam Mental Status Exam Patient Appearance: Appropriate Patient Orientation: Person, Place, Time and Situation Level of Consciousness: Alert Patient Behavior: Appropriate, Talkative, Cooperative and Good Eye Contact Mood Description: Apprehensive Affect Description: Apprehensive Patient Cognition Impaired: No Ability to Follow Directions: Good Speech Pattern: Spontaneous Speech Memory Description: Intact Hallucinations: None Delusions: Not Present Thought Process: Distracted Thought Content: positive for Circumstantial and positive for Perseveration Depressive Symptoms: Increased Anxiety and Thoughts of /Suicide (denies) Abnormal Motor Activity Signs and Symptoms: Restlessness Diagnostics Vital Signs (24Hr): Vital Signs - 24 hr 08/05/22 18:00 08/06/22 09:17 Temperature 97.2 F 97.8 F Pulse Rate 79 17 L Respiratory Rate 16 Blood Pressure 126/63 138/100 H Pulse Oximetry 98 99 Oxygen Delivery Method Room Air Room Air BMI result Body Mass Index 31.4 Labs 08/01/22 07:16 07/31/22 02:51 Labs: Laboratory Results - last 48 hr 08/05/22 08:25 Vitamin B12 460 Folate 8.5 TSH 1.39 Imaging Radiology Impressions: ITS Impressions Chest X-Ray 07/31/22 04:20 IMPRESSION: Unremarkable examination. Medications Medications Current Medications Acetaminophen (Acetaminophen 325 Mg Tablet) 650 mg PO Q6H PRN PRN Reason: Headache/Pain Mild Scale (1-3) Al Hydroxide/Mg Hydroxide (Magnesium Hydrox/Alum Hydrox 30 Ml Oral.Susp) 30 ml PO Q6H PRN PRN Reason: Heartburn/Nausea Last Admin: 08/06/22 09:21 Dose: 30 ml Albuterol Sulfate (Albuterol Sulfate 90 Mcg 8 Gm Inhaler) 2 puff INHALE RQ4H PRN PRN Reason: Wheezing Benztropine Mesylate (Benztropine Mesylate 1 Mg Tablet) 1 mg PO BID [facility] Last Admin: 08/06/22 08:27 Dose: 1 mg Divalproex Sodium (Divalproex Sodium 500 Mg Tablet.Dr) 1,000 mg PO BEDTIME [facility] Last Admin: 08/05/22 20:53 Dose: 1,000 mg Doxycycline Monohydrate (Doxycycline Monohydrate 100 Mg Capsule) 100 mg PO BID [facility] Stop: 08/08/22 23:00 Last Admin: 08/06/22 08:27 Dose: 100 mg Fluoxetine HCl (Fluoxetine Hcl 20 Mg Capsule) 40 mg PO DAILY [facility] Last Admin: 08/06/22 08:27 Dose: 40 mg Hydroxyzine HCl (Hydroxyzine Hcl 25 Mg Tablet) 25 mg PO Q6H PRN PRN Reason: Anxiety Last Admin: 08/04/22 13:37 Dose: 25 mg Magnesium Hydroxide (Milk Of Magnesia 30 Ml Oral.Susp) 30 ml PO DAILY PRN PRN Reason: Constipation Melatonin (Melatonin 3 Mg Tablet) 3 mg PO BEDTIME [facility] Last Admin: 08/05/22 20:53 Dose: 3 mg Melatonin (Melatonin 3 Mg Tablet) 3 mg PO BEDTIME PRN PRN Reason: continued insomnia Nicotine (Nicotine 21 Mg Patch.Td24) 21 mg TRANSDERMA DAILY PRN PRN Reason: smoking cessation Nicotine Polacrilex (Nicotine Polacrilex 2 Mg Gum) 4 mg BUCCAL Q2H PRN PRN Reason: Nicotine Cravings Olanzapine (Olanzapine 5 Mg Tablet) 5 mg PO TID PRN PRN Reason: agitation Last Admin: 08/04/22 13:37 Dose: 5 mg Quetiapine Fumarate (Quetiapine Fumarate 50 Mg Tablet) 50 mg PO TID PRN PRN Reason: Anxiety Last Admin: 08/04/22 13:37 Dose: 50 mg Quetiapine Fumarate (Quetiapine Fumarate 50 Mg Tablet) 150 mg PO BEDTIME [facility] Last Admin: 08/05/22 20:54 Dose: 150 mg Trazodone HCl (Trazodone Hcl 50 Mg Tablet) 50 mg PO BEDTIME MRX1 PRN PRN Reason: Insomnia Last Admin: 08/05/22 20:55 Dose: 50 mg Allergies Allergies Allergy/AdvReac Type Severity Reaction Status Date / Time bupropion [From Wellbutrin] Allergy Unknown Verified 07/31/22 02:30 Assessment & Plan Assessment & Plan (1) Depression: Status: Acute Code(s): F32.A - Depression, unspecified (2) Suicidal ideation: Status: Acute Code(s): R45.851 - Suicidal ideations (3) Cocaine abuse: Status: Acute Code(s): F14.10 - Cocaine abuse, uncomplicated Plan 32 yo male presenting with increase in depressive sx with SI and cocaine relapse. 08/02 continue current regimen Will look to see regarding Depakote level labs 08/03 continue current regimen -ordered labs 08/05/22- Discharge 08/07. Plans to go to mother's home. 08/07/22- Discharge 08/07/22. Plan: Collateral contact Seroquel 150 mg HS Milieu involvement Aftercare planning, ?CSS Patient educated on: therapeutic strategies Informed Consent: understands Reason for contiued inpatient stay Substantial Risk for: stable for discharge Time Spent With Patient Time: Total time managing care of this patient today 20 minutes.
[2022-08-06 18:00] VITALS: BP 135/81; PULSE 64; RESP 18; TEMP 36.9; O2SAT 99
[2022-08-06] MEDS: Divalproex Sodium 500 MG TABLET.DR 1000 MG PO (20:22)
[2022-08-06] MEDS: QUEtiapine Fumarate 50 MG TABLET 150 MG PO (20:23)
[2022-08-06] MEDS: traZODone HCL 50 MG TABLET PO ×2 (20:24→22:23)
[2022-08-06] MEDS: Melatonin 3 MG TABLET PO (20:25)
[2022-08-06] MEDS: hydrOXYzine HCL 25 MG TABLET PO (20:25)
--- NOTE | 2022-08-06 20:26 | MHC.RECOVSUP ---
? Reason for consult:Recovery Support o Current location: [facility]? o Identified substance use concern: FRANCISCO JAVIER - Cocaine? - Support ? ?Intervention: o Community resources provided o Harm reduction discussion ? Additional information:?[employer] was able to connect with pt and review harm reduction strategies and community resources was provided along with a referral for [employer] In[employer] with [employer].
[2022-08-07 08:17] VITALS: BP 113/68; PULSE 75; RESP 18; TEMP 36.1; O2SAT 98
[2022-08-07] MEDS: Benztropine Mesylate 1 MG TABLET PO (09:16)
[2022-08-07] MEDS: FLUoxetine HCl 20 MG CAPSULE 40 MG PO (09:16)
[2022-08-07] MEDS: Doxycycline Monohydrate 100 MG CAPSULE PO (09:16)
--- NOTE | 2022-08-07 10:49 | PC.NURSE ---
Patient is alert and oriented. Patient reports an understanding and agreement of discharge instruction and teaching. Patient feels safe for discharged. Denies SI/HI/AH/VH. Denies acute physical complaints. Plans to follow up with peer support
--- NOTE | 2022-08-07 12:52 | PM.PSYDC ---
DS: Providers Provider Date of Service: 08/07/22 Date of admission: 07/31/22 14:42 Date of discharge: 08/07/22 Primary care physician: Unknown Physician Admitting clinician: Nicole Umana Attending physician on admission: Royal Garcia Attending physician on discharge: Royal Garcia Discharging clinician: Nicole Umana DS: Diagnosis Discharge Diagnosis (1) Depression: Status: Acute (2) Suicidal ideation: Status: Acute (3) Cocaine abuse: Status: Acute DS: Medications Discharge Medications Home Medications: Previous Rx's Medication Instructions Recorded albuterol sulfate 90 mcg/actuation 2 puff inhalation RQ4H PRN 08/06/22 aerosol inhaler (Ventolin HFA) Wheezing #1 inhaler benztropine 1 mg tablet 1 mg PO BID #30 tabs 08/06/22 divalproex 500 mg tablet,delayed 1,000 mg PO BEDTIME #60 tabs 08/06/22 release doxycycline monohydrate 100 mg 100 mg PO BID #4 caps 08/06/22 capsule fluoxetine 40 mg capsule 1 cap PO QAM #30 caps 08/06/22 melatonin 3 mg tablet 3 mg PO BEDTIME #30 tabs 08/06/22 nicotine (polacrilex) 2 mg gum 4 mg buccal Q2H PRN Nicotine 08/06/22 Cravings #30 ea nicotine 21 mg/24 hr daily 21 mg transdermal DAILY PRN 08/06/22 transdermal patch smoking cessation #30 ea quetiapine 50 mg tablet 150 mg PO BEDTIME #90 tabs 08/06/22 Mental Status Exam Mental Status Exam Patient Appearance: Appropriate Patient Orientation: Person, Place, Time and Situation Level of Consciousness: Alert Patient Behavior: Appropriate, Talkative, Cooperative and Good Eye Contact Mood Description: Apprehensive Affect Description: Apprehensive Patient Cognition Impaired: No Ability to Follow Directions: Good Speech Pattern: Spontaneous Speech Memory Description: Intact Hallucinations: None Delusions: Not Present Thought Process: Distracted Thought Content: positive for Circumstantial and positive for Perseveration Depressive Symptoms: Increased Anxiety and Thoughts of /Suicide (denies) Abnormal Motor Activity Signs and Symptoms: Restlessness Data Data Completed and Pending Completed studies during hospitalization [Text1]: 08/01/22 08/01/22 08/01/22 07:16 07:16 07:16 WBC 9.5 RBC 5.35 Hgb 14.8 Hct 44.6 MCV 83.4 MCH 27.7 MCHC 33.2 RDW 14.1 Plt Count 350 MPV 9.5 Immature Gran % (Auto) 0.4 Neut % (Auto) 51.5 Lymph % (Auto) 38.0 [place] % (Auto) 6.1 Eos % (Auto) 3.5 Baso % (Auto) 0.5 Lymph # (Auto) 3.6 [place] # (Auto) 0.6 Eos # (Auto) 0.3 Baso # (Auto) 0.1 Abs Immat Gran (auto) 0.04 H Absolute Neuts (auto) 4.9 Absolute Nucleated RBC 0.000 Nucleated RBC % (auto) 0.0 Estimat Average Glucose 108 Hemoglobin A1c % 5.4 Total Bilirubin Direct Bilirubin AST ALT Alkaline Phosphatase Ammonia Total Protein Albumin Triglycerides 83 Cholesterol 197 LDL Cholesterol, Calc 132 HDL Cholesterol 49 Vitamin B12 Folate TSH Valproic Acid 08/04/22 08/04/22 08/04/22 07:19 07:19 07:19 WBC RBC Hgb Hct MCV MCH MCHC RDW Plt Count MPV Immature Gran % (Auto) Neut % (Auto) Lymph % (Auto) [place] % (Auto) Eos % (Auto) Baso % (Auto) Lymph # (Auto) [place] # (Auto) Eos # (Auto) Baso # (Auto) Abs Immat Gran (auto) Absolute Neuts (auto) Absolute Nucleated RBC Nucleated RBC % (auto) Estimat Average Glucose Hemoglobin A1c % Total Bilirubin 0.4 Direct Bilirubin < 0.2 AST 12 ALT 27 Alkaline Phosphatase 77 Ammonia 30 Total Protein 7.0 Albumin 4.3 Triglycerides Cholesterol LDL Cholesterol, Calc HDL Cholesterol Vitamin B12 Folate TSH Valproic Acid 116.7 H* 08/05/22 08/07/22 08:25 08:29 WBC RBC Hgb Hct MCV MCH MCHC RDW Plt Count MPV Immature Gran % (Auto) Neut % (Auto) Lymph % (Auto) [place] % (Auto) Eos % (Auto) Baso % (Auto) Lymph # (Auto) [place] # (Auto) Eos # (Auto) Baso # (Auto) Abs Immat Gran (auto) Absolute Neuts (auto) Absolute Nucleated RBC Nucleated RBC % (auto) Estimat Average Glucose Hemoglobin A1c % Total Bilirubin Direct Bilirubin AST ALT Alkaline Phosphatase Ammonia Total Protein Albumin Triglycerides Cholesterol LDL Cholesterol, Calc HDL Cholesterol Vitamin B12 460 Folate 8.5 TSH 1.39 Valproic Acid 89.0 Imaging Diagnostic Imaging Impressions Chest X-Ray 07/31/22 04:20 IMPRESSION: Unremarkable examination. DS: Summary Hospital Course Hospital Course: Admission to adult psychiatry for exacerbation of depression, substance use. Depakote and Seroquel were titrated. Fluoxetine was continued. Pt was unable to find placement at a longer term residential program due to bed inavailability, he chose to return to his mother's home and will continue with out patient treatment. Time spent discussing smoking cessation with patient: 3 to 10 minutes Status at Discharge Functional status at discharge: independent ambulation Overall status at discharge: patient is back to baseline Time Spent with Patient Time attestation: Total time managing care of this patient today 35 minutes. Time spent: Greater than 30 minutes Discharge Plan Discharge Anticipated Discharge Date/Time: 08/07/22 11:21 Patient Disposition: Home, Self-Care Discharge Diagnosis: Recurrent Major Depression, Severe Cocaine Use Disorder Referrals: Clinical and Support Options Kasie Freeman [Other] - 08/08/22 11:00 am (sail lay out worker has recommended a therapist, med prescriber and heel caser for [place].) [facility] [Other] - 3-5 Days ([place] can walk-in any time between 9 and 5pm. sail lay out worker called to confirm this. ) Edwige Mckinney, [employer] OPERATOR [Nurse Practitioner] - 08/19/22 5:00 pm (in office) Discharge Medications: New nicotine (polacrilex) 2 mg Gum 4 mg buccal Q2H PRN (Reason: Nicotine Cravings) Qty: 30 0RF melatonin 3 mg Tablet 3 mg PO BEDTIME Qty: 30 0RF divalproex 500 mg Tablet,Delayed Release (Dr/Ec) 1,000 mg PO BEDTIME Qty: 60 0RF doxycycline monohydrate 100 mg Capsule 100 mg PO BID Qty: 4 0RF benztropine 1 mg Tablet 1 mg PO BID Qty: 30 0RF nicotine 21 mg/24 hr Patch 24 Hour 21 mg transdermal DAILY PRN (Reason: smoking cessation) Qty: 30 0RF albuterol sulfate [Ventolin HFA] 90 mcg/actuation Hfa Aerosol Inhaler 2 puff inhalation RQ4H PRN (Reason: Wheezing) Qty: 1 0RF quetiapine 50 mg Tablet 150 mg PO BEDTIME Qty: 90 0RF Continued fluoxetine 40 mg capsule 1 cap PO QAM Qty: 30 0RF Discontinued divalproex 500 mg tablet,delayed release (DR/EC) 3 tab PO BEDTIME quetiapine 50 mg tablet 1 tab PO TID PRN (Reason: Anxiety) Discharge Orders: Discharge Order (Routine); Ordered 08/06/22 Ordered By: Nicole Umana Diet: Advance to usual diet Activity on Discharge: As tolerated Stand Alone Forms: Patient Portal Discharge page, Community Support Care Plan Goals: Stable mood and behavior Health Concerns: Stable mood and behavior Plan of Treatment: Follow up with out patient appointments Take medications as directed Assessment: non suicidal, non homicidal, non manic, non psychotic Discharge Date/Time: 08/07/22 11:00
== END 2022-08-07 11:00 | disposition home or self-care (01) | DRG 751 ==
LOC: HO.ED 13:42 → HO.PM5 14:48
PROVIDERS: Admitting Provider Psychiatry & Neurology Psychiatry; Emergency Provider Internal Medicine; Visit Provider Clinical Nurse Specialist Psychiatric/Mental Health, Adult
DX: F33.2 Major depressive disorder, recurrent severe without psychotic features (principal); R45.851 Suicidal ideations; Z91.14 Patient's other noncompliance with medication regimen; F14.10 Cocaine abuse, uncomplicated; F17.210 Nicotine dependence, cigarettes, uncomplicated; Z23 Encounter for immunization; Z59.02 Unsheltered homelessness; Z71.6 Tobacco abuse counseling; Z20.822 Contact with and (suspected) exposure to COVID-19; Z88.8 Allergy status to other drugs, medicaments and biological substances; Z79.899 Other long term (current) drug therapy
CPT/HCPCS: 36415; 71045; 80053; 80061; 80076; 80164; 80307; 82077; 82140; 82607; 82746; 83036; 84443; 85025; 87635; 90686; 93005; 99285; S9485